=== PATIENT | female | born 1940 | race Caucasian/White ===

== ENCOUNTER 2025-03-28 11:19 | Emergency (ER) | payer MEDICARE, OTHER, SELFPAY ==
[2025-03-28 11:24] VITALS: BP 192/88; PULSE 77; RESP 18; TEMP 36.3; O2SAT 99; BMI 27.4
--- NOTE | 2025-03-28 11:31 | DI.CT.S_ITS ---
PROCEDURE: CT CERVICAL SPINE WO CON INDICATIONS: fall TECHNIQUE: Noncontrast 3 mm thick sections acquired from the skull base to the T4 level. Sagittal and coronal reformats were then constructed. For radiation dose reduction, the following was used: automated exposure control, adjustment of mA and/or kV according to patient size. COMPARISON: None. FINDINGS: Image quality: Excellent. Bones: No acute fractures or dislocations. Visualized superior ribs are intact. C-spine Soft tissues: Prevertebral soft tissues are normal in thickness. No paravertebral hematomas. No apical pneumothoraces. Atherosclerotic calcifications at the carotid bifurcations bilaterally. IMPRESSION: No acute displaced fracture or traumatic subluxation. Moderate multilevel cervical spondylosis. Approved by: Mac Mae M.D. on 03/28/2025 at 12:53
--- NOTE | 2025-03-28 11:31 | DI.CT.S_ITS ---
PROCEDURE: CT HEAD/BRAIN WO CON INDICATIONS: fall TECHNIQUE: Noncontrast 4.5 mm thick angled axial sections acquired from the foramen magnum to the vertex, with coronal and sagittal reformats. For radiation dose reduction, the following was used: automated exposure control, adjustment of mA and/or kV according to patient size. COMPARISON: None. FINDINGS: Image quality: Diagnostic. CSF spaces: Basal cisterns are patent. No extra-axial fluid collections. The ventricles are symmetric in size and shape. Brain: No intracranial bleeds or mass effect. There is cerebral volume loss, with resultant ventricular and sulcal prominence. There are periventricular and deep white matter chronic small vessel ischemic changes. There is intracranial internal carotid artery atherosclerosis. Skull and face: Calvarium and visualized facial bones appear intact, without suspicious lesions. Sinuses: Visualized sinuses and mastoids are clear. IMPRESSION: No acute intracranial pathology. Dictated by: Russell Ace M.D. on 03/28/2025 at 11:53 Approved by: Russell Ace M.D. on 03/28/2025 at 11:53
--- NOTE | 2025-03-28 11:31 | DI.CT.S_ITS ---
PROCEDURE: CT FACIAL BONES WO CON INDICATIONS: fall facial swelling TECHNIQUE: Noncontrast 2.5 mm thick axial images acquired from the mandible through the frontal sinuses, with coronal and sagittal reformatting. For radiation dose reduction, the following was used: automated exposure control, adjustment of mA and/or kV according to patient size. COMPARISON: None. FINDINGS: Image quality: Excellent. Bones and teeth: Orbital robins are intact. Sinus robins show no fracture or deformity. Nasal bones and septum are intact. Visualized portions of the mandible demonstrate no fractures or subluxation. Zygomatic arches are intact. Pterygoid plates are intact. Visualized portions of the skull base and auditory canals are intact. Sinuses: Paranasal sinuses are aerated, without fluid levels, mucosal thickening, or mucoceles. Mastoid air cells are aerated. Soft tissues: Subcutaneous edema or hemorrhage is seen in the right periorbital region. No intraorbital edema. No enlarged lymph nodes. No soft tissue lacerations or debris. Vascular: Bilateral carotid bifurcation atherosclerotic calcifications. Bony vascular foramina and canals are intact. IMPRESSION: Right periorbital subcutaneous edema or blood products. No intraorbital edema. No acute facial fracture. Approved by: Mac Mae M.D. on 03/28/2025 at 12:51
--- NOTE | 2025-03-28 13:21 | ED.HEATRA ---
HPI - Head Injury <Diana Naqvi PA-C - Last Filed: 03/28/25 18:53> General Chief complaint: Head Injury Stated complaint: Fell hit Bridge of nose, Left Eye pain today Time Seen by Provider: 03/28/25 12:49 Source: patient Mode of arrival: Ambulatory History of Present Illness HPI Narrative: Ms. Jairo Kessler is a very pleasant 85-year-old female with a past medical history of leukemia in remission, HLD who presents to the emergency department for right facial trauma after a trip and fall that occurred at 10:00 a.m. this morning. Patient states that she was walking in her home, her had his legs outstretched in front of him, and she accidentally tripped over his feet. She fell forward hitting her right eye directly on a wooden stool. She did not lose consciousness, she does not take blood thinners. She developed immediate swelling of her right eyelid. She has pain surrounding her right eye but no pain within the eye. Her eye is swollen shut however when eyelids are open her vision is reported ot be normal. She reports feeling slightly off balance from the fall but no chest pain, shortness of breath, extremity pain, back pain, neck pain, headache, vomiting. She is ambulatory and took Tylenol prior to arrival. She does not wear contact lenses, she does wear glasses. Related Data Allergies Allergy/AdvReac Type Severity Reaction Status Date / Time No Known Allergies Allergy Verified 03/28/25 11:29 Review of Systems <Diana Naqvi PA-C - Last Filed: 03/28/25 18:53> Review of Systems ROS Unobtainable: All systems reviewed & are unremarkable except as noted in HPI and below Patient History <Diana Naqvi PA-C - Last Filed: 03/28/25 18:53> Social History Smoking Status: Current every day smoker Smoking Status: Current every day smoker tobacco type: cigarettes Alcohol type: wine Exam <Diana Naqvi PA-C - Last Filed: 03/28/25 18:53> Narrative Exam Narrative: GENERAL: 85 year old patient appears stated age. Well-developed patient, in no acute distress. HEAD: No scalp or skull tenderness. Just below the medial aspect of the left eyebrow there is a 2 cm linear gaping laceration. There are superficial lacerations on the upper and lower eyelid. EYES: Significant ecchymosis and edema right periorbital region causing eye to be swollen shut. Upon holding open the patient's eyelid open, PERRL. Extraocular motions intact. No pain with EOMs. No scleral icterus. The iris and pupil are normal however the patient has edema of the conjunctiva with erythema consistent with chemosis. Fluorescein exam reveals negative Michelle sign, no obvious abrasion. Right intra-ocular pressure measured with the Sergio-Pen is 21. Left intra-ocular pressure measured with the Sergio-Pen is 13. ENT: Nose without bleeding, purulent drainage. No septal hematoma. Throat without erythema, tonsillar hypertrophy or exudate. No mastoid bruising. Airway patent. NECK: Trachea midline. Cervical ROM intact. No midline cervical tenderness. CARDIOVASCULAR: Regular rate and rhythm. RESPIRATORY: ?Nonlabored respirations. ?Speaking in clear, full sentences. ?Clear to auscultation. Breath sounds equal bilaterally. No wheezes, rales, or rhonchi. ? GASTROINTESTINAL: Abdomen soft, non-tender, nondistended. EXTREMITIES: No tenderness to palpation of bilateral upper and lower extremities. BACK: Nontender without deformity or crepitance. No flank tenderness. NEURO: AOx3. ?Clear speech. ?Moves all 4 extremities appropriately. Ambulates independently. SKIN: Right periorbital erythema edema, ecchymoses described above with laceration below the medial right eyebrow. Initial Vital Signs Initial Vital Signs: Vital Signs Temperature 97.4 F L 03/28/25 11:24 Pulse Rate 77 03/28/25 11:24 Respiratory Rate 18 03/28/25 11:24 Blood Pressure 192/88 H 03/28/25 11:24 Pulse Oximetry 99 03/28/25 11:24 Oxygen Delivery Method Room Air 03/28/25 11:24 <Nai Washington DO - Last Filed: 03/28/25 19:08> Initial Vital Signs Initial Vital Signs: Vital Signs Temperature 97.4 F L 03/28/25 11:24 Pulse Rate 77 03/28/25 11:24 Respiratory Rate 18 03/28/25 11:24 Blood Pressure 192/88 H 03/28/25 11:24 Pulse Oximetry 99 03/28/25 11:24 Oxygen Delivery Method Room Air 03/28/25 11:24 Procedures <Diana Naqvi PA-C - Last Filed: 03/28/25 18:53> Laceration Repair Laceration 1: Site: face (just medial/below R eyebrow) Side (If applicable): right Size (cm): 2 Description: linear and flap Depth: simple, single layer (involves subQ) Local Anesthetic: lidocaine 1% and with epi Amount of anesthesia used (mL): 4 Pre-repair: wound explored, irrigated extensively (Irrigated with diluted Betadine) and deep structures intact Skin layer closed with: nylon Skin layer suture size: 5-0 Number of sutures: 6 (5 in 2cm lac, 1 in 3mm neighboring lac) Technique: simple, interrupted Subcutaneous layer closed with: chromic gut Subcutaneous layer suture size: 4-0 Number of sutures: 1 Course <Diana Naqvi PA-C - Last Filed: 03/28/25 18:53> Orders Ordered: ED Orders 03/28/25 11:31 CT cervical spine wo con Stat CT facial bones wo con Stat CT head/brain wo con Stat Discontinued Medications Bacitracin (Bacitracin Oint 0.9 Gm Pckt) 1 applic TOP NOW ONE Stop: 03/28/25 14:49 Last Admin: 03/28/25 15:00 Dose: 1 applic Documented By: SIMRAN Erythromycin (Erythromycin Ophth 1 Gm Oint) 1 applic EYE-RIGHT NOW ONE Stop: 03/28/25 14:49 Last Admin: 03/28/25 15:00 Dose: 1 applic Documented By: SIMRAN Fluorescein Sodium (Fluorescein 1 Mg Strip) 1 mg EYE-RIGHT NOW ONE Stop: 03/28/25 13:42 Last Admin: 03/28/25 13:46 Dose: 1 mg Documented By: VITOR Proparacaine HCl (Proparacaine 0.5% Ophth Agnes) 1 drops EYE-RIGHT NOW ONE Stop: 03/28/25 13:42 Last Admin: 03/28/25 13:47 Dose: 1 drop Documented By: VITOR Vital Signs Vital signs: Vital Signs - 8 hr 03/28/25 11:24 03/28/25 15:51 Temperature 97.4 F L Pulse Rate 77 60 Respiratory Rate 18 18 Blood Pressure 192/88 H 159/72 H Pulse Oximetry 99 100 Oxygen Delivery Method Room Air Room Air <Nai Washington DO - Last Filed: 03/28/25 19:08> Orders Ordered: ED Orders 03/28/25 11:31 CT cervical spine wo con Stat CT facial bones wo con Stat CT head/brain wo con Stat Discontinued Medications Bacitracin (Bacitracin Oint 0.9 Gm Pckt) 1 applic TOP NOW ONE Stop: 03/28/25 14:49 Last Admin: 03/28/25 15:00 Dose: 1 applic Documented By: CTS Erythromycin (Erythromycin Ophth 1 Gm Oint) 1 applic EYE-RIGHT NOW ONE Stop: 03/28/25 14:49 Last Admin: 03/28/25 15:00 Dose: 1 applic Documented By: CTS Fluorescein Sodium (Fluorescein 1 Mg Strip) 1 mg EYE-RIGHT NOW ONE Stop: 03/28/25 13:42 Last Admin: 03/28/25 13:46 Dose: 1 mg Documented By: VITOR Proparacaine HCl (Proparacaine 0.5% Ophth Agnes) 1 drops EYE-RIGHT NOW ONE Stop: 03/28/25 13:42 Last Admin: 03/28/25 13:47 Dose: 1 drop Documented By: FLJason Vital Signs Vital signs: Vital Signs - 8 hr 03/28/25 11:24 03/28/25 15:51 Temperature 97.4 F L Pulse Rate 77 60 Respiratory Rate 18 18 Blood Pressure 192/88 H 159/72 H Pulse Oximetry 99 100 Oxygen Delivery Method Room Air Room Air MDM - Head Injury <Diana Naqvi PA-C - Last Filed: 03/28/25 18:53> Medical Records Medical records narrative: None Imaging Data CT scan - head: Radiologist's Impression: PROCEDURE: CT HEAD/BRAIN WO CON INDICATIONS: fall TECHNIQUE: Noncontrast 4.5 mm thick angled axial sections acquired from the foramen magnum to the vertex, with coronal and sagittal reformats. For radiation dose reduction, the following was used: automated exposure control, adjustment of mA and/or kV according to patient size. COMPARISON: None. FINDINGS: Image quality: Diagnostic. CSF spaces: Basal cisterns are patent. No extra-axial fluid collections. The ventricles are symmetric in size and shape. Brain: No intracranial bleeds or mass effect. There is cerebral volume loss, with resultant ventricular and sulcal prominence. There are periventricular and deep white matter chronic small vessel ischemic changes. There is intracranial internal carotid artery atherosclerosis. Skull and face: Calvarium and visualized facial bones appear intact, without suspicious lesions. Sinuses: Visualized sinuses and mastoids are clear. IMPRESSION: No acute intracranial pathology. Dictated by: Russell Ace M.D. on 03/28/2025 at 11:53 Approved by: Russell Ace M.D. on 03/28/2025 at 11:53 CT Face: Radiologist's Impression: PROCEDURE: CT FACIAL BONES WO CON INDICATIONS: fall facial swelling TECHNIQUE: Noncontrast 2.5 mm thick axial images acquired from the mandible through the frontal sinuses, with coronal and sagittal reformatting. For radiation dose reduction, the following was used: automated exposure control, adjustment of mA and/or kV according to patient size. COMPARISON: None. FINDINGS: Image quality: Excellent. Bones and teeth: Orbital robins are intact. Sinus robins show no fracture or deformity. Nasal bones and septum are intact. Visualized portions of the mandible demonstrate no fractures or subluxation. Zygomatic arches are intact. Pterygoid plates are intact. Visualized portions of the skull base and auditory canals are intact. Sinuses: Paranasal sinuses are aerated, without fluid levels, mucosal thickening, or mucoceles. Mastoid air cells are aerated. Soft tissues: Subcutaneous edema or hemorrhage is seen in the right periorbital region. No intraorbital edema. No enlarged lymph nodes. No soft tissue lacerations or debris. Vascular: Bilateral carotid bifurcation atherosclerotic calcifications. Bony vascular foramina and canals are intact. IMPRESSION: Right periorbital subcutaneous edema or blood products. No intraorbital edema. No acute facial fracture. Approved by: Mac Mae M.D. on 03/28/2025 at 12:51 CT - cervical spine: Radiologist's Impression: PROCEDURE: CT CERVICAL SPINE WO CON INDICATIONS: fall TECHNIQUE: Noncontrast 3 mm thick sections acquired from the skull base to the T4 level. Sagittal and coronal reformats were then constructed. For radiation dose reduction, the following was used: automated exposure control, adjustment of mA and/or kV according to patient size. COMPARISON: None. FINDINGS: Image quality: Excellent. Bones: No acute fractures or dislocations. Visualized superior ribs are intact. C-spine Soft tissues: Prevertebral soft tissues are normal in thickness. No paravertebral hematomas. No apical pneumothoraces. Atherosclerotic calcifications at the carotid bifurcations bilaterally. IMPRESSION: No acute displaced fracture or traumatic subluxation. Moderate multilevel cervical spondylosis. Approved by: Mac Mae M.D. on 03/28/2025 at 12:53 MDM Narrative Medical decision making narrative: 85-year-old female with a past medical history of leukemia in remission, HLD who presents to the emergency department for right facial trauma after a trip and fall that occurred at 10:00 a.m. this morning. Unsure of last TDap. Differential diagnosis includes but is not limited to ICH, facial fracture, corneal abrasion, traumatic chemosis, corneal laceration, closed head injury, contusion, hematoma, etc. On exam the patient is in no acute distress, nontoxic appearing, vital signs within normal limits. Her right eye is swollen shut, she has a laceration medial and below the right eyebrow, and she has chemosis of the right eye. Gross vision is intact, no diplopia, no pain with extraocular movements. No midline neck pain, no extremity pain, no syncope loss of consciousness or blood thinners. CT head, face, cervical spine ordered in triage. We will update Tdap, performed laceration repair, perform a fluorescein eye exam. Patient is fluorescein eye exam revealed negative Michelle sign. Intra-ocular pressure 21 and right eye, [address] Head [address], cervical spine CT without any traumatic findings. Face CT does reveal right periorbital subcutaneous edema or blood products, no intraorbital edema, no acute facial fracture. Patient's facial laceration was anesthetized, irrigated and cleansed extensively and repaired using 1 deep dermal suture and 5 simple interrupted sutures, followed by 1 simple interrupted suture in a nearby smaller laceration. Case was discussed with rubber trimmer on-call, Dr. Mar. Dr. Mar clinic will be open for just a few more minutes and if the patient is brought over quickly she will be able to see her today. After shared decision-making with the patient, she is agreeable to be wheeled directly over to the ophthalmology clinic for evaluation. Discussed with the patient supportive care for her laceration and head trauma. Discussed PCP follow up, suture removal in 5 days and strict ER return precautions. Patient verbalized understanding of all information is agreeable with the plan. She is stable for discharge home into the outpatient ophthalmology office. 1845: After reviewing the patient's chart today, I realized that the patient did not receive Tdap while here in the ED due to quickly being taken over to the ophthalmology office. Patient was unsure of her last Tdap and her care is with [facility] so we do not have records. I called and left voicemail with both the patient and her to let them know that I do recommend that she gets her Tdap. Discharge Plan Departure Patient Disposition: Home Clinical Impression: Fall on same level from tripping, Periorbital edema of right eye, Chemosis of right conjunctiva Facial laceration Qualifiers: Encounter type: initial encounter Qualified Code(s): S01.81XA - Laceration without foreign body of other part of head, initial encounter Instructions: DI for Laceration Repair -- Simple, DI for Closed Head Injury Activity Restrictions/Additional Instructions: Please go directly to the ophthalmology office. Today you had 6 stitches placed into your forehead. Please keep these covered for the next 24 hours. After this time you may wash them with warm soapy water, apply ointment such as Vaseline or bacitracin, and cover them back up with a Band-Aid. Please have the stitches removed in 5-7 days. Please return to the emergency department immediately if you develop fevers, redness surrounding the wound, pus draining from the wound or any other concerns. Please follow up with your primary care doctor within the next 2-3 days for ER follow-up. (If you do not have a PCP you can call [phone]. ?to schedule an appointment with an [facility] Primary Care Provider) IF YOU DEVELOP ANY NEW OR WORSENING SYMPTOMS, RETURN TO THE ER! Please read the attached instructions, they highlight more specific treatments and interventions for you at home. Thank you for letting me participate in your care, Diana Naqvi PA-C Stand Alone Forms: Patient Portal/API ED Sign-out <Nai Washington DO - Last Filed: 03/28/25 19:08> Cosign ED Attending Cosserenaature Attestation: I was immediately available in the department for consultation. Case was discussed with the myself patient was seen and evaluated by myself as well. Patient's CT imaging was reviewed as well as labs. On exam she has a periorbital ecchymosis, she does have chemosis/scleral hemorrhage of the sclera conjunctiva, does not appear to have hyphema exam, patient's pressure was elevated at 21 on the right compared to the left. Her visual acuity after erythromycin was removed has a slight change of 2009 on the right in 2024 and a left. Because of the patient's elevated pressure on the right case was discussed with Ophthalmology locally they have availability today for evaluation patient is otherwise medically cleared so discharged from the ER to go see Dr. Mar with Ophthalmology here at the hospital. Head CT showed no acute intracranial pathology, CT cervical spine showed moderate multilevel cervical spondylosis no displaced fracture or traumatic subluxation. Facial bone CT shows right periorbital subcutaneous edema or blood products. No infraorbital edema, no acute facial fractures.
[2025-03-28] MEDS: FLUORESCEIN 1 MG STRIP EYE-RIGHT (13:46)
[2025-03-28] MEDS: PROPARACAINE 0.5% OPHTH SOL 1 DROPS EYE-RIGHT (13:47)
[2025-03-28] MEDS: ERYTHROMYCIN OPHTH 1 GM OINT 1 APPLIC EYE-RIGHT (15:00)
[2025-03-28] MEDS: BACITRACIN OINT 0.9 GM PCKT 1 APPLIC TOP (15:00)
--- NOTE | 2025-03-28 15:13 | PC.NURSE ---
sutures placed by YARA Ortiz. EER ointment placed in R eye. Pt taken shortly after for visual acuity testing. Pt unable to read the eye chart with the R eye. states the 20/10 E at the top of the chart is blurry. rinsed out and test redone. R eye 20/30 L eye 2024. tolerated well. awaiting consult from Dr Zaid Mas. given sandwich and water.
--- NOTE | 2025-03-28 15:28 | PC.NURSE ---
Pt is being transported to Dr Patel--optyvette for an appt at this time.
[2025-03-28 15:51] VITALS: BP 159/72; PULSE 60; RESP 18; O2SAT 100
== END 2025-03-28 15:34 | disposition home or self-care (01) ==
PROVIDERS: Emergency Provider Physician Assistant
DX: S01.81XA Laceration without foreign body of other part of head, initial encounter (principal); M47.892 Other spondylosis, cervical region; W01.190A Fall on same level from slipping, tripping and stumbling with subsequent striking against furniture, initial encounter
CPT/HCPCS: 12051; 70450; 70486; 72125; 99282; 99284